=== PATIENT | female | born 1980 | race Caucasian/White ===

== ENCOUNTER 2017-04-04 13:47 | Emergency (ER) | payer MEDICAID ==
[2017-04-04] MEDS ORDERED: Lidocaine 1% with EPINEPHrine 1:100,000 20 ML MDV INJECT ONE (14:20)
[2017-04-04] MEDS ORDERED: Diphtheria,Pertussis(Acell),Tetanus Vaccine 0.5 ML SDV inactive IM ONE (14:35)
--- NOTE | 2017-04-04 23:11 | ER ---
HISTORY OF PRESENT ILLNESS: A 36-year-old lady here with complaints of cutting her top lip. She was carrying a basket when she slipped on the ice and fell. Her face hit against the basket. She noticed bleeding right away. She denies any other injuries. Pressure was held at the site, which did stop the bleeding after a few minutes. She denies any problems with dental pain or loose teeth. OBJECTIVE: GENERAL APPEARANCE: The patient is awake and alert, in no obvious distress. VITAL SIGNS: Reviewed. They are normal. Examining the patient's face reveals a vertical cut involving the upper lip just to the left of midline. It is mildly gaping and it goes just above the lip slightly. The length of the laceration is about 1.3 cm. There is no active bleeding at this time. Diagnosis: Laceration to lip. TREATMENT PLAN: The site was cleansed with Betadine, after which 1% lidocaine with epinephrine was injected locally for anesthesia. I then acquired a sterile field and I repaired the laceration with sutures, it required 3 sutures using 6-0 Ethilon. The patient tolerated the procedure well. Antibiotic ointment was applied by nursing staff. She is to monitor for infection. The sutures should come out in about a week. She can take Tylenol or ibuprofen as needed for pain, and she was given a tetanus booster here today as well. The patient has no further questions. TYLER/LILLIAN /[id number] MTDD
== END 2017-04-04 14:52 | disposition home or self-care (01) ==
LOC: LB.ED 13:47
DX: S01.511A Laceration without foreign body of lip, initial encounter (principal); W00.0XXA Fall on same level due to ice and snow, initial encounter; Z23 Encounter for immunization
CPT/HCPCS: 12011; 90471; 90715; 99282-25